=== PATIENT | female | born 1975 | race Two or more races ===

== ENCOUNTER 2017-03-30 23:06 | Emergency (ER) | payer OTHER ==
[~2017-03-30] VITALS: Ht 162.6 cm; Wt 70.3 kg
[2017-03-31] MEDS: OLANZAPINE 5 MG TABLET PO ONE (00:45)
--- NOTE | 2017-03-31 00:45 | NUR ---
Patient discharged to home in stable conditon. Written and verbal after care instructions given. Patient verbalizes understanding of instructions. Patient denies any SI/HI. Patient left with stable gait, accompanied by .
[2017-03-31 00:46] VITALS: BP 146/85
[2017-03-31] MEDS ORDERED: OLANZAPINE 5 MG TABLET ONE (00:52)
== END 2017-03-31 00:47 | disposition home or self-care (01) ==
LOC: ER 23:09
DX: F32.9 Major depressive disorder, single episode, unspecified (principal); G47.00 Insomnia, unspecified
CPT/HCPCS: A4663

== ENCOUNTER 2021-07-31 09:42 | Emergency (ER) | payer OTHER ==
[~2021-07-31] VITALS: Ht 162.6 cm; Wt 74.8 kg
[2021-07-31] MEDS ORDERED: OLANZAPINE 5 MG TABLET PO ONE (10:15)
[2021-07-31] MEDS ORDERED: OLANZAPINE 5 MG TABLET ONE (10:35)
[2021-07-31 10:42] LABS: HEMATOCRIT 43.1 % (31.2-41.9); MEAN CORPUSCULAR VOLUME 88.2 fL (75.5-95.3); PLATELET COUNT (AUTO) 189 K/uL (179-408)
[2021-07-31 10:44] LABS: CARBON DIOXIDE 24 mmol/L (21-32); CHLORIDE 103 mmol/L (98-107); CREATININE 0.5 mg/dL (0.6-1.3); GLUCOSE 126 mg/dL (74-106); POTASSIUM 3.8 mmol/L (3.5-5.1); UREA NITROGEN, BLOOD 5 mg/dL (7-18)
[2021-07-31 10:59] LABS: THYROID STIMULATING HORMONE 2.111 mIU/mL (0.358-3.740)
[2021-07-31] MEDS ORDERED: OLAN5TAB70 PO (11:13)
--- NOTE | 2021-07-31 11:22 | NUR ---
Gave pt RX and d/c instructions, pt verbalized understanding. Translated by .
== END 2021-07-31 11:27 | disposition home or self-care (01) ==
LOC: ER 09:42
DX: G47.00 Insomnia, unspecified (principal); F41.9 Anxiety disorder, unspecified
CPT/HCPCS: 36415; 84443; 85025; A4663